=== PATIENT | female | born 1980 | race Two or more races ===

== ENCOUNTER → 2022-08-17 08:00 | Outpatient (CLI) | payer OTHER ==
[~2022-08-17] VITALS: Ht 160 cm; Wt 88.9 kg
[~2022-08-17 08:00] MED LIST: ADEMPAS2.5 MG PO; COZAAR25 MG PO; IMURAN PO; MESTINON180 MG PO; MILLIPRED5 MG PO; REMODULIN IJ; TOPROL XL50 M1 PO
== END | disposition home or self-care (01) ==
LOC: LAB 08:00 → ADM 09:45 → CIR.AMB 08-20 07:00 → EDSTATUS 08-20 09:45
PROVIDERS: ATTEND Colon & Rectal Surgery
DX: K59.00 Constipation, unspecified (principal); N39.0 Urinary tract infection, site not specified; K62.5 Hemorrhage of anus and rectum; D59.8 Other acquired hemolytic anemias; Z11.59 Encounter for screening for other viral diseases; Z20.828 Contact with and (suspected) exposure to other viral communicable diseases; D68.9 Coagulation defect, unspecified; R15.9 Full incontinence of feces

== ENCOUNTER 2023-01-24 05:20 | Day surgery (SDC) | payer OTHER ==
[~2023-01-24] VITALS: Ht 160 cm; Wt 90.7 kg
== END 2023-01-24 11:45 | disposition home or self-care (01) ==
LOC: CIR.AMB 05:20
PROVIDERS: ATTEND Colon & Rectal Surgery
DX: R15.9 Full incontinence of feces (principal); R32 Unspecified urinary incontinence; D59.8 Other acquired hemolytic anemias; K59.00 Constipation, unspecified; Z20.822 Contact with and (suspected) exposure to COVID-19; Z11.59 Encounter for screening for other viral diseases
CPT/HCPCS: 64581; 95972; C1778

== ENCOUNTER 2023-02-09 07:53 | Outpatient (CLI) | payer OTHER ==
[~2023-02-09 07:53] MED LIST changes: +LASIX40 MG PO; +MESTINON60 MG PO
== END 2023-02-09 07:55 | disposition home or self-care (01) ==
LOC: LAB 07:53
PROVIDERS: ATTEND Colon & Rectal Surgery
DX: Z20.828 Contact with and (suspected) exposure to other viral communicable diseases (principal); Z20.822 Contact with and (suspected) exposure to COVID-19; Z11.59 Encounter for screening for other viral diseases

== ENCOUNTER 2023-02-09 08:26 | Day surgery (SDC) | payer OTHER | END 2023-02-09 14:00 | disposition home or self-care (01) | LOC: CIR.AMB 08:26 | PROVIDERS: ATTEND Colon & Rectal Surgery | DX: R15.9 Full incontinence of feces (principal); Z20.822 Contact with and (suspected) exposure to COVID-19; I10 Essential (primary) hypertension; Z88.8 Allergy status to other drugs, medicaments and biological substances | CPT/HCPCS: 64590; 95972; L8679 ==